=== PATIENT | female | born 1935 | race Two or more races ===

== ENCOUNTER 2018-08-02 09:23 | Day surgery (SDC) | payer MEDICARE, BC ==
[2018-08-02] VITALS (7 sets, daily range): BP systolic 122–144; BP diastolic 60–74
[~2018-08-02] VITALS: Ht 154.9 cm; Wt 49.9 kg
--- NOTE | 2018-08-02 07:28 | Anethesia Preoperative Eval ---
Anesthesia Pre-op PMH/ROS General Date of Evaluation: Aug 02, 2018 Time of Evaluation: 07:28 Anesthesiologist: ramses ASA Score: ASA 4 Mallampati Score Class I : Soft palate, uvula, fauces, pillars visible Class II: Soft palate, uvula, fauces visible Class III: Soft palate, base of uvula visible Class IV: Only hard plate visible Mallampati Classification: Class II Surgeon: lety Diagnosis: gerd Surgical Procedure: egd Anesthesia History: none Family History: no anesthesia problems Allergies: Coded Allergies: No Known Allergies (Unverified , 08/01/18) Medications: see eMAR Patient NPO?: Yes Anesthesia Pre-op Phys. Exam Physician Exam Last Vital Signs Date Time Temp Pulse Resp B/P (MAP) Pulse Ox O2 Delivery O2 Flow Rate FiO2 08/02/18 10:10 Room Air 08/02/18 10:01 97.1 62 18 143/73 98 Constitutional: NAD Neurologic: CN 2-12 intact Cardiovascular: RRR Respiratory: CTA Gastrointestinal: S/NT/ND Airway Exam Mallampati Score: Class II MO: limited Neck: flexible TMD: 2fb ROM: limited Teeth: missing Dentures: upper, lower Anesthesia Pre-op A/P Risk Assessment & Plan Assessment: asa4 Plan: mac Status Change Before Surgery: No Pre-Antibiotics Drug: Connie Chavarria MD Aug 02, 2018 07:28
[~2018-08-02 09:23] MED LIST: Atropine Inj 1mg/10ml Syr IV PRN; DiphenhydrAMINE 50mg/ml Inj IVP PRN; LR 1000ml 1,000 ML IVLG SCH; Midazolam 2mg/2ml Inj IVP PRN; fentaNYL 100 mcg/2 mL IV PRN
[2018-08-02] MEDS ORDERED: LIPITOR20 MG ORAL (10:11)
[2018-08-02] MEDS ORDERED: TIMOLOL 0.5%-LAT5 ML OP (10:13)
--- NOTE | 2018-08-02 11:28 | Short Stay Surgery H&P ---
History of Present Illness History of Present Illness Chief Complaint Recent finding of iron deficiency anemia and positive stool for occult blood HPI Lori Noguera is a 83 year old female who was admitted on for GI bleeding of unknown source/low iron Patient History Allergies: Coded Allergies: No Known Allergies (Unverified , 08/01/18) PAST MEDICAL HISTORY: (1) Hyperlipidemia Medication History Scheduled Atorvastatin Calcium* (Lipitor*), 20 MG ORAL BEDTIME, (Reported) Timolol Maleate/Latanoprost/Pf (Timolol 0.5%-Latanopros 0.005%), 5 ML OP BID, ( Reported) Review of Systems Cardiovascular: Reports: no symptoms Respiratory: Reports: no symptoms Skeletal: Reports: no symptoms Gastrointestinal: Reports: no symptoms Genitourinary: Reports: no symptoms Neurologic: Reports: no symptoms Endocrine: Reports: no symptoms Hematologic: Reports: anemia Physical Exam Vital Signs Last Vital Signs Date Time Temp Pulse Resp B/P (MAP) Pulse Ox O2 Delivery O2 Flow Rate FiO2 08/02/18 10:10 Room Air 08/02/18 10:01 97.1 62 18 143/73 98 Skin: normal HENT: normal Heart: normal Lungs: normal Abdomen: normal Extremities: normal Genitourinary: normal Plan Plan of Care Upper and lower GI endoscopy with biopsy Preop Interventions None. Summary of Findings see the reports Attestation Are the patient's medical conditions optimized for surgery? Attestation Response: yes Megan Marquez MD Aug 02, 2018 11:28
--- NOTE | 2018-08-02 11:29 | Pre-Procedure Note/Attestation ---
Pre-Procedure Note/Attestation Complete Prior to Procedure Planned Procedure: left Procedure Narrative: examination of the uppr and the lower GI tract via endoscopy. Indications for Procedure Pre-Operative Diagnosis: R/O Peptic ulcer/tumors/polyps angidysplasia Attestation I attest that I discussed the nature of the procedure; its benefits; risks and complications; and alternatives (and the risks and benefits of such alternatives ), prior to the procedure, with the patient (or the patient's legal service liaison representative). I attest that, if there was a reasonable possibility of needing a blood transfusion, the patient (or the patient's legal service liaison representative) was given the [place] [facility] [employer] [facility] standardized written summary, pursuant to the Rakesh Cecilia Blood Safety Act ([place] Health and Safety Code # 1645, as amended). I attest that I re-evaluated the patient just prior to the surgery and that there has been no change in the patient's H&P, except as documented below: Megan Marquez MD Aug 02, 2018 11:29
[2018-08-02] MEDS ORDERED: LR 1000ml ONE (11:30)
[2018-08-02] MEDS ORDERED: Atropine Sulfate 0.4mg/ml inj ONE (11:30)
[2018-08-02] MEDS ORDERED: Lidocaine 1% MPF 10mg/ml 5ml ONE (11:30)
[2018-08-02] MEDS ORDERED: Propofol 200mg/20ml IV ONE (11:30)
--- NOTE | 2018-08-02 12:26 | Endoscopy Procedure Note ---
Endoscopy Procedure Note General Indication for Procedure: Iron defiency anemia/GI bleed Procedures Performed: EGD - possible small esophageal varices in the upper esophagus at 20 and 25 cm from cryopharyngeal area? otherwise normal UGI. No evidence of the upper GI being source of GI bleed. Gastric biopsy done per random., colonoscopy - Exremely difficult procedure due to high redundancy of left colon. Minimal internal hemorrhoids and diverticulosis of the left colon. Large polypoid mass found on proximal ascending colon consistent with adenocarcinoma of the colon, biopsied. Large pendunculated polypoid lesion on lower descending colon biopsied and tatooted, looked benign. Specimen: yes Estimated Blood Loss: none Anesthesia Anesthesiologist: Dr. Alcazar Anesthesia: moderate sedation Medications Medication Given: see anesthesia record Inserted Devices Implant(s) used?: No Quality Quality of Bowel Preparation: Fair Did scope reach the cecum?: Yes Was there any complications?: No GI Core Measures 50 yrs or older w/o bx or poly: Yes 10yrs. F/U not recommended: Yes If not recommended, why?: 10 yrs. F/U needed: No 18 years or older w/prev. colo: No <3yrs. since last colonoscopy: No Med reason:<3 yrs.: Last colonoscopy >= to 3yrs: Yes Megan Marquez MD Aug 02, 2018 12:26
--- NOTE | 2018-08-02 12:27 | Discharge Instructions ---
Discharge Instructions Discharge Instructions Follow up with: Visit the docotor after one week in office For Congestive Heart Failure Reminder Report to your physician any weight gain of 5 pounds or more in one week. Megan Marquez MD Aug 02, 2018 12:27
--- NOTE | 2018-08-02 12:58 | Immediate Post-Op Evaluation ---
Immediate Post-Op Evalulation Immediate Post-Op Evalulation Procedure: egd/colonoscopy/bx Date of Evaluation: Aug 02, 2018 Time of Evaluation: 12:44 IV Fluids: 600ml lr Blood Products: none Estimated Blood Loss: negligible Blood Pressure Systolic: 133 Blood Pressure Diastolic: 61 Pulse Rate: 75 Respiratory Rate: 18 O2 Sat by Pulse Oximetry: 98 Temperature (Fahrenheit): 97.1 Pain Score (1-10): 0 Nausea: No Vomiting: No Complications none Patient Status: awake, reacts, patent Hydration Status: adequate Drug: Connie Chavarria MD Aug 02, 2018 12:58
--- NOTE | 2018-08-02 12:59 | 48 Hour Post Anesthesia Eval ---
Post Anesthesia Evaluation Procedure: egd/colonoscopy/bx Date of Evaluation: Aug 02, 2018 Time of Evaluation: 12:46 Blood Pressure Systolic: 135 0: 65 Pulse Rate: 75 Respiratory Rate: 18 Temperature (Fahrenheit): 97.1 O2 Sat by Pulse Oximetry: 98 Airway: patent Nausea: No Vomiting: No Pain Intensity: 0 Hydration Status: adequate Cardiopulmonary Status: stable Mental Status/LOC: patient returned to baseline Post-Anesthesia Complications: none Follow-up care needed: N/A Connie Alcazar MD Aug 02, 2018 12:59
--- NOTE | 2018-08-02 17:00 | Procedure Note ---
DATE OF PROCEDURE: 08/02/2018 SURGEON: Megan Marquez M.D. PROCEDURE: Esophagogastroduodenoscopy with biopsy. PREOPERATIVE DIAGNOSES: Positive stool for blood test, rule out GI bleeding, question of source. POSTOPERATIVE DIAGNOSIS: Multiple lesions which looked like esophageal varices at the level of 20 and 25 centimeter from cricopharyngeal area, not considered to be the cause of bleeding in GI tract and not friable. Otherwise, completely normal upper GI endoscopy. Biopsy was done per random from gastric body. MEDICATIONS: By Dr. Badillo, anesthesiologist. INSTRUMENT: GIF Olympus upper GI video endoscope. DESCRIPTION OF PROCEDURE: The patient after arriving endoscopy unit, was told about risks and benefits of the procedure which she accepted and signed informed consent. The patient had recently had a blood test which revealed significant drop in hemoglobin and iron suggestive of gastrointestinal bleeding, which was confirmed with 3+ positive stool for occult blood. At this time, the patient was scheduled to undergo this procedure to evaluate this possible source of upper GI versus lower GI bleeding. After explaining the risks and benefits of the procedure, the patient signed informed consent was put on the left lateral decubitus position. After adequate IV sedation, the scope was gently passed through the cricopharyngeal area, was lodged into the upper esophagus and gradually advanced towards gastroesophageal junction. An incidental finding was the small areas of protruded lesion, which looked like venous lesion consistent with varices approximately 1 cm size but was not the source of any bleeding, underneath the esophagus looked completely normal. The scope was further advanced up to 25 centimeter from cricopharyngeal area. There was another similar lesion was seen which was thought to be consistent with localized varices, but again the source of it was not clear. Again, this lesion was not friable or considered to be of the bleeding site. Finally, the scope was advanced further down to the gastroesophageal junction, which revealed a total normal finding of the esophagus. GE junction also looked normal and there was no any evidence of ulcers or Alaniz's. Subsequently, scope was guided into the stomach, gastric cavity was distended, and gradually the areas of the fundus and the body and the antrum were examined which revealed completely normal findings. There was no evidence of ulcer, hemangioma, angiodysplasias, ulcers, tumors, gastritis, etc. At this point, one random biopsy from gastric body obtained and the scope was passed through the antrum and from there into the first and second portion of duodenum and the scope was advanced as much as it could be pushed and there was no other pathology found. Finally, the scope was pulled out and the procedure was terminated. The patient tolerated the procedure well. Said Mackenzie Marquez DR: David JOB#: [id number] CC:
--- NOTE | 2018-08-02 20:00 | Procedure Note ---
SURGEON: Megan Marquez M.D. PROCEDURE: Total colonoscopy with biopsy. PREOPERATIVE DIAGNOSES: Significant iron-deficiency anemia and positive stool for occult blood, rule out GI source of hemorrhoids, carcinoma, polyps, or tumors. POSTOPERATIVE DIAGNOSES: 1. A rather large circular mass in proximal ascending colon consistent with adenocarcinoma of the colon, quite friable, multiple biopsy. 2. A 2 to 3 centimeter pedunculated polypoid lesion found in the distal descending colon which looked benign, however, it was biopsied and tattooed. 3. Diverticulosis of the left colon. 4. Minimal internal hemorrhoids. 5. Significant difficult procedure because of high redundancy of colon and possibly . MEDICATIONS USED: Per Dr. Badillo, anesthesiologist. INSTRUMENT: GIF Olympus video colonoscope. DESCRIPTION OF PROCEDURE: The patient after arriving endoscopy unit, was told about risks and benefits of the procedure which he accepted and signed informed consent. She was then put on the left lateral decubitus position and the scope was gradually introduced in to rectoanal area, which revealed evidence of minimal internal hemorrhoids, which was confirmed by retroflexion of the scope, but this lesion was not friable. The rest of the rectum looked completely normal without any pathology. At this time, the scope was passed through rather highly redundant left colon, which possibly was consistent with also adhesions in the pelvis. Significant amount of time was passed to go through this area, which revealed evidence of diverticular lesions scattered in this area as well. An incidental finding was evidence of a large pedunculated polypoid lesion more than 2.5 to 3 cm which looked benign however it could not be taken out at this point, and it was tattooed and biopsied as well. Subsequently, the scope was passed further into the splenic flexure, transverse colon, and guided into the right colon all the way to the base of the cecum. The major finding was rather large tumoral mass in the proximal ascending colon which was quite friable and consistent with adenocarcinoma of the colon that was multiply biopsied. At this point within 10 minutes, the scope was gradually pulled out and no other pathology was found. The patient tolerated the procedure well and left the endoscopy room in a good condition. Said Mackenzie Marquez DR: David JOB#: [id number] CC:
== END 2018-08-02 13:25 | disposition home or self-care (01) ==
LOC: GAS 09:23
DX: K92.1 Melena (principal); D50.9 Iron deficiency anemia, unspecified; K57.90 Diverticulosis of intestine, part unspecified, without perforation or abscess without bleeding; K64.8 Other hemorrhoids; N73.6 Female pelvic peritoneal adhesions (postinfective); E78.5 Hyperlipidemia, unspecified; K29.50 Unspecified chronic gastritis without bleeding; B96.81 Helicobacter pylori [H. pylori] as the cause of diseases classified elsewhere; C18.9 Malignant neoplasm of colon, unspecified
CPT/HCPCS: 45380; 45381; J0461; J2704; 94003; 94150